=== PATIENT | female | born 1975 | race Caucasian/White ===

== ENCOUNTER 2024-04-10 13:56 | Emergency (ER) | payer BC, SELFPAY ==
[2024-04-10 14:12] VITALS: BP 110/73; PULSE 61; RESP 18; TEMP 36.6; O2SAT 97; BMI 30.5
--- NOTE | 2024-04-10 14:34 | CRLHL7_ITS ---
For Patients: As a result of the Century Cures Act, medical imaging exams and procedure reports are released immediately into your electronic medical record. You may view this report before your referring provider. If you have questions, please contact your health care provider. INDICATION: LLQ PAIN, PYURIA, HX KIDNEY STONES. TECHNIQUE: CT abdomen and pelvis acquired with 90 cc Isovue 370 IV contrast. COMPARISON: None. FINDINGS: Lower chest: Unremarkable. Liver: Unremarkable. Normal in size and attenuation. No suspicious masses. Gallbladder and bile ducts: Unremarkable. No stones or inflammation. No biliary dilatation. Pancreas: Unremarkable. No mass or inflammation. Spleen: Unremarkable. Normal in size. No masses. Adrenal glands: Unremarkable. No nodules. Kidneys: Unremarkable. No suspicious masses, stones, or hydronephrosis. GI tract: Slightly above average colonic stool volume. No bowel obstruction. Appendix within normal limits. Vasculature: Abdominal aorta is normal in caliber. Mesenteric arteries are patent. Lymph nodes: No lymphadenopathy. Peritoneum/Abdominal Wall: Small fat containing umbilical hernia. Rectus diastasis. No sign of mass or infiltration. No free air or significant free fluid. Pelvis: Uterus is unremarkable. Bilateral adnexal cysts likely physiologic. Mild bladder wall thickening anteriorly. Bones: Unremarkable for age. IMPRESSION: Mild anterior bladder wall thickening. May be related to cystitis. Correlate with UA. No renal or ureteral stones. Otherwise, no acute intra-abdominal process identified. Please note that all CT scans at this facility use dose modulation, iterative reconstruction, and/or weight-based dosing when appropriate to reduce radiation dose to as low as reasonably achievable. Dictated by Gamaliel Mcqueen MD @ 04/10/2024 4:25:05 PM (Electronically Signed)
--- NOTE | 2024-04-10 14:36 | ED_ITS ---
HPI - General Adult General Date Seen: 04/10/24 Chief complaint: Abdominal Pain Stated complaint: Lower L abdominal pain Time Seen by Provider: 04/10/24 14:27 Source: patient, RN notes reviewed and other Mode of arrival: ambulatory Limitations: no limitations History of Present Illness HPI narrative: Patient is a 49-year-old, generally healthy woman who went to urgent care today with left lower quadrant pain. She says she has had pain for about 3 weeks, she describes it is achy and it has been [id number] in intensity. She does have a history of kidney stones and it does not feel like which she remembers from previous kidney stone. It was worse this morning, she has her daughter's graduation democrat, and a trip to [place] coming up and she decided she just needed to figure what was going on. She did have a little vaginal bleeding this past week which she says was unexpected as she had her last period 2 weeks ago. She does not have specific concerns about , her has had a vasectomy. She has not had urinary symptoms, she has not had nausea, vomiting, diarrhea or bloody stools. Denies constipation. She has not had fevers or chills. She has been taking ibuprofen pretty regularly however. Previous history of , no other abdominal surgeries. Has never had a colonoscopy. Related Data Home Medications ?Medication ?Instructions ?Recorded ?Confirmed escitalopram oxalate 10 mg tablet 10 mg PO QDAY 04/10/24 04/10/24 estradiol 0.0375 mg/24 hr 1 patch transdermal 2XW 04/10/24 04/10/24 semiweekly transdermal patch (Lyllana) Allergies Allergy/AdvReac Type Severity Reaction Status Date / Time No Known Drug Allergies Allergy Verified 04/10/24 15:59 Review of Systems Status of ROS: Reports: 10 or more systems reviewed and unremarkable except as noted in History and below [facility] Medical History Abdominal pain ?R10.9 - Unspecified abdominal pain (ICD-10) Social History Smoking Status: Never smoker Do you use any of these nicotine containing products: None Second hand tobacco smoke exposure: No How often do you have a drink containing alcohol: 2-4 times a month How many standard drinks containing alcohol do you have on a typical day: 1 or 2 How often do you have six or more drinks on one occasion: Never AUDIT-C Alcohol total score: 2 Non-prescribed substance use: denies use service: No Exam Narrative: Exam Narrative: Vital signs as noted above. In general, an alert, well-appearing patient. Head: Normocephalic, atraumatic. Eyes: Pupils are equal reactive. Extraocular movements are full. Conjunctivae are normal. ENT: Mucous membranes are moist. Throat is normal. Neck: Supple without lymphadenopathy. Heart: Regular rate and rhythm. No murmur or rub. Lungs: Clear bilaterally. No increased work of breathing, crackles or wheezes. Abdomen: Soft and nontender. No organomegaly. Extremities: Well perfused. No edema. No calf tenderness. Pulses intact. Neurologic: Patient is alert and oriented to person and place. Speech is fluent. Face is symmetric. Moves all extremities equally. Affect: Normal. Skin: Warm and dry. Well perfused. Const: Vital Signs, click to edit/add: Vital Signs - 24 hr 04/10/24 14:12 04/10/24 16:31 Temperature 98 F Pulse Rate [Pulse Oximeter] 61 Respiratory Rate 18 16 Blood Pressure [Ri ght Upper Arm] 110/73 107/61 Pulse Oximetry 97 98 Oxygen Delivery Me thod Room Air Room Air Documenting provider has reviewed patient's vital signs: yes Course Course ED Course: I reviewed records from Urgent Care. Her urine there showed positive nitrites, 10-25 white blood cells, 2-5 red blood cells. This is suggestive of urinary tract infection although she does not have other symptoms of UTI. With a history of kidney stones, I think it would be prudent to rule out a larger stone at the [facility], though she does not feel that she has had any pain that severe. Diverticulitis would be another consideration that can be evaluated on CT. Consider ovarian pathology, test pending. Declines the need for anything for pain right now. She did change her mind and asked for something for pain, had Toradol IV, feels improved. test was negative. CT scan of the abdomen and pelvis by my review did not show significant inflammatory changes of the bowel or significant diverticular disease, I do not see any kidney stones or hydronephrosis. Final radiology read as follows:FINDINGS: Lower chest: Unremarkable. Liver: Unremarkable. Normal in size and attenuation. No suspicious masses. Gallbladder and bile ducts: Unremarkable. No stones or inflammation. No biliary dilatation. Pancreas: Unremarkable. No mass or inflammation. Spleen: Unremarkable. Normal in size. No masses. Adrenal glands: Unremarkable. No nodules. Kidneys: Unremarkable. No suspicious masses, stones, or hydronephrosis. GI tract: Slightly above average colonic stool volume. No bowel obstruction. Appendix within normal limits. Vasculature: Abdominal aorta is normal in caliber. Mesenteric arteries are patent. Lymph nodes: No lymphadenopathy. Peritoneum/Abdominal Wall: Small fat containing umbilical hernia. Rectus diastasis. No sign of mass or infiltration. No free air or significant free fl uid. Pelvis: Uterus is unremarkable. Bilateral adnexal cysts likely physiologic. Mild bladder wall thickening anteriorly. Bones: Unremarkable for age. IMPRESSION: Mild anterior bladder wall thickening. May be related to cystitis. Correlate with UA. No renal or ureteral stones. Otherwise, no acute intra-abdominal process identified. Reviewed all this with her. I think it is reasonable to treat her for the bladder infection and see how she responds. 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 I do not suspect ovarian torsion, I do not think she needs that imaging today. If at any time she feels acutely worse, has severe uncontrolled pain, fever, vomiting or other worsening changes, return to the emergency department. Prescribed Macrobid from [facility]. Vital Signs Vital signs: Initial Vital Signs Temperature 98 F 04/10/24 14:12 Temperature Source Temporal Artery Scan 04/10/24 14:12 Pulse Rate 61 04/10/24 14:12 Pulse Rhythm Regular 04/10/24 14:12 Respiratory Rate 18 04/10/24 14:12 Blood Pressure 110/73 04/10/24 14:12 Blood Pressure Mean 85 04/10/24 14:12 Blood Pressure Position Sitting 04/10/24 14:12 Pulse Oximetry 97 04/10/24 14:12 Oxygen Delivery Method Room Air 04/10/24 14:12 Vital Signs Temperature 98 F 04/10/24 14:12 Pulse Rate 61 04/10/24 14:12 Respiratory Rate 18 04/10/24 14:12 Blood Pressure 110/73 04/10/24 14:12 Pulse Oximetry 97 04/10/24 14:12 Oxygen Delivery Method Room Air 04/10/24 14:12 Temperature 98 F 04/10/24 14:12 Pulse Rate 61 04/10/24 14:12 Respiratory Rate 16 04/10/24 16:31 Blood Pressure 107/61 04/10/24 16:31 Pulse Oximetry 98 04/10/24 16:31 Oxygen Delivery Method Room Air 04/10/24 16:31 Medications Administered Medications: Discontinued Medications Generic Name Dose Route Start Last Admin Trade Name Danielle PRN Reason Stop Dose Admin Sodium Chloride 1,000 mls @ 1,000 mls/hr 04/10/24 14:45 04/10/24 15:26 0.9 % Sodium Chloride 1000 Ml IV 04/10/24 15:44 1,000 mls/hr .Q1H FELIPE Administration Ketorolac Tromethamine 15 mg 04/10/24 15:14 04/10/24 15:26 Ketorolac 15 Mg/Ml Inj IVP 04/10/24 15:15 15 mg ONCE ONE Administration Medical Decision Making Lab Data Labs: Lab Results 04/10/24 Range/Units 15:10 HCG, Qual Negative (Negative) Discharge Plan Discharge Clinical Impression: UTI (urinary tract infection) Abdominal pain Qualifiers: Abdominal location: left lower quadrant Qualified Code(s): R10.32 - Left lower quadrant pain Patient Disposition: Home, Self-Care Condition: Stable Instructions: Urinary Tract Infection in Women (DC) Additional Instructions: Antibiotic as prescribed. Continue ibuprofen and/or Tylenol as needed. Your CT scan today does not show any acute findings such as kidney stones or diverticulitis. You likely have some cysts on both ovaries, but these are not significantly large and are likely not contributing to your symptoms. However, if not improving with antibiotics, would recommend primary care follow-up and consideration of a pelvic ultrasound for further evaluation. Prescriptions: No Action escitalopram oxalate 10 mg tablet 10 mg PO QDAY estradiol [Lyllana] 0.0375 mg/24 hr patch semiweekly 1 patch transdermal 2XW Rx Instructions: apply 1 patch for 3 days alternating with 1 patch for 4 days each week for 3 wks per 4-wk cycle Follow Up/Referrals: Kitty Guerra MD [Staff Physician] - Stand Alone Forms: [employer] Info Instructions
--- OUTSIDE RECORDS SUMMARY | 2024-04-10 14:40 | XMS_ITS | Clinical Summary ---
Author Organization [facility] Address [place], [place] [address] Care Team Providers Care Switch Repairer Name Role Phone Laquita Angeles Primary Care Provider [phone] Allergies No known active allergies Medications Medication Sig Dispensed Refills Start Date End Date Status citalopram hydrobromide (CELEXA) 10 mg tabletIndications:de pression Take 10 mg by mouth once daily. Indications: DEPRESSION Active oxyCODONE-acetaminop hen, 5-325 mg, (PERCOCET 5-325) 5-325 mg per tablet Take 1 tablet by mouth every 4 hours if needed for Pain for 20 doses. 20 tablet 0 11/26/2010 Active Active Problems Problem Noted Date Diagnosed Date Ureteral stone 11/26/2010 Immunizations Name Administration Dates Next Due Influenza, IIV3 (Age >=3 years) 11/27/2010 Social History Tobacco Use Types Packs/Day Years Used Date Smoking Tobacco: Never Alcohol Use Standard Drinks/Week Comments Not Asked 0 (1 standard drink = 0.6 oz pur e alcohol) Sex and Gender Information Value Date Recorded Sex Assigned at Not on file Gender Identity Not on file Sexual Orientation Not on file Obstetrics History Last Filed Vital Signs Vital Sign Reading Time Taken Comments Blood Pressure 105/77 01/11/2022 5:00 PM CDT Pulse 66 01/11/2022 5:00 PM CDT Temperature 36.1 ??C (97 ??F) 01/11/2022 4:00 PM CDT Respiratory Rate 16 01/11/2022 4:15 PM CDT Oxygen Saturation 97% 01/11/2022 5:00 PM CDT Inhaled Oxygen Concentration - - Weight 71.1 kg (156 lb 12.8 oz) 022 12:46 PM CDT Height 165.1 cm (5' 5) 01/11/2022 12:4 6 PM CDT Body Mass Index 26.09 01/11/2022 12:46 PM CDT Plan of Treatment Health Maintenance Due Date Last Done Comments Tdap 1988 Depression screening for age 12+ 1989 HIV for age 15-65 1992 BMI (ht and wt on same day) for age 18+ 1995 Hepatitis C screening for ag e 18-79 1995 Tetanus booster 1997 Pap test for age 21-65 1998 Colonoscopy through age 75 2022 Lipids for age 45-75 2022 Mammogram for age 45-75 2022 COVID-19 vaccine series (2022-24 season) 2023 03/21/2021, 02/25/2021 Influenza for age 9-49 06/28/2024 11/27/2010 Pneumococcal series for age 6-64 Aged Out No longer eligible b ased on patient's age to complete this topic Medical Devices Implanted Type Area Workforce Development Program Director Device Identifier Shelf Expiration Date Model / Serial / Lot Stent Prcflx [id number] Hydpls - [id number] Implanted:Qty: 1 on 11/26/[address] [facility] Left: Ureter [facility] [place] [facility] 08/27/2013 [id number] / / [id number] Care Teams Switch Repairer Relationship Specialty Start Date End Date Laquita Angeles PCP - General Family Practice 11/26/10
--- OUTSIDE RECORDS SUMMARY | 2024-04-10 14:40 | XMS_ITS | Continuity of Care Document ---
Author Organization [place] - [facility], [id number] Address [address] [facility] [address] [place] [address] Assessment Encounter Date Assessment Date Assessment LastModified by Organization Details LastModified Time 02/06/2024 02/06/2024 - Encouraged breast self-awareness and recommend yearly mammogram. - Calcium and vitamin D intake discussed. - Lipid panel, A1C and TSH today - Lexapro refilled x 1 year - Discussed appropriate breast cancer screening and mammogram intervals. - Counseled on perimenopause signs/symptoms. - Counseled about the use of HRT; risks, benefits and alternatives of hormone replacement therapy were discussed today. - Colonoscopy scheduled for next month - Yearly skin scan with derm - Normal mammogram in December - Will inform pt of lab results - RTC in 1 month for medication f/u [email or web address] Not available 02/06/2024 13:50:20 Plan of Treatment Reminders Order Date Submit Date Provider Last Modified By Organization Details Last Modified Time Details Appointments None recorded. Lab lipid panel, serum 2023 [facility], [address] [place] [address], [id number], [place], [address], 4 08:19:00 TSH, serum or plasma 2023 024 [facility], [address], [address], [place], [address], 4 08:19:00 hemoglobin A1c, QN, blood 2023 024 [facility], [address], [address], [place], [address], 08:18:57 Referral None recorded. Procedures None recorded. Surgeries None recorded. Imaging None recorded. Medication Orders progesteron e micronized 100 mg capsule 2023 [facility], [address] [place], [address], 13:48:12 estradiol 0.05 mg/24 hr semiweekly transdermal patch 2023 [facility], [address] [place], [address], 4 13:48:12 escitalopra m 10 mg tablet 2023 [facility] [address], [address] [place], [address], 13:51:12 Patient TargetsNo targets recorded. Patient InstructionsNo instructions recorded. Reason for Referral None Reported. Results Created Date Observation Date Name Description Value Unit Range Abnormal Flag LastModifiedBy Organization Detail LastModifiedTime 01/20/2001/15/2024 MAMMO , scree miah, tomos ynthe sis, bilat eral, w/ CAD No observ ation record ed. [email or web address] [facility] [address], [place], [address], 01/20/2024 15:02:10 Result Notes None recorded. Problems Name Status Onset Date Resolution Date Notes Provider Name and Address Organization Details Recorded Time Contraception care management Active 07/05/20 ABRAHAM Ennis [facility] 07/05/2022 14:32:57 Problem Notes None recorded. Procedures Surgical History Date Name Laterality Status Provider Name and Address Organization Details Recorded Time 01/15/20 Date of Last Mammogram completed ABRAHAM Barry [facility] 01/20/2024 15:01:55 01/24/20 22 Date of Last Pap Smear completed HECTOR CEDEÑO, CNM [address] [facility],[address], [place], [address], [facility] 02/06/2024 10:42:06 colposcopy of cervix completed Not Available [facility] 06/06/2020 01:03:49 tooth extraction completed Not Available [facility] 06/06/2020 01:03:49 section completed Not Available [facility] 06/06/2020 01:03:49 endometrial biopsy completed Not Available [facility] 06/06/2020 01:03:49 Imaging Results None recorded. Procedure Notes None recorded. Medical Equipment None Reported. Allergies No known drug allergies Medications Name Sig Start Date Stop Date Status Note LastModified by Organization Details LastModified Time Aviane 0.1 mg-20 mcg tablet TAKE 1 TABLET BY MOUTH ONCE DAILY 02/05 completed Not Available Not Available Not Available paroxetine 10 mg tablet TAKE 1 2 (ONE HALF) TABLET BY MOUTH ONCE DAILY 11/21 completed Not Available Not Available Not Available tizanidine 4 mg tablet TAKE 1/2 TO 1 (ONE-HALF TO ONE) TABLET BY MOUTH AT BEDTIME FOR NECK PAIN AND HEADACHES active Not Available Not Available No t Available tretinoin 0.025 % topical cream APPLY CREAM TOPICALLY TO FACIAL AREA THREE TIMES A WEEK APPLY SMALL AMOUNT active Not Available Not Available No t Available sertraline 50 mg tablet Take 1 tablet every day by oral route. active Not Available Not Available No t Available diazepam 5 mg tablet TAKE 1 TABLET BY MOUTH 45 MINUTES PRIOR TO MRI, REPEAT DOSE ONCE IF NEEDED 11/16 completed Not Available Not Available Not Available progesteron e micronized 100 mg capsule TAKE 1 CAPSULE BY MOUTH ONCE DAILY AT BEDTIME active Not Available Not Available No t Available escitalopra m 10 mg tablet TAKE 1 TABLET BY MOUTH ONCE DAILY active Not Available Not Available No t Available magnesium active Not Available Not Susanna ilable Not Available Vitamin D3 2,000iu active Not Available Not A vailable Not Available Probiotic active Not Available Not Susanna ilable Not Available Daily Multiple For Women active Not Available Not Available No t Available Lyllana 0.05 mg/24 hr transdermal patch APPLY 1 PATCH TOPICALLY TWICE A WEEK active Not Available Not Available No t Available Vuity 1.25 % eye drops INSTILL 1 DROP INTO EACH EYE ONCE DAILY 02/05 completed Not Available Not Available Not Available Vitals Date Recorded Body weight Body mass index (BMI) Body height Systolic blood pressure Diastolic blood pressure Provider Name and Address Organization Details Last Updated DateTime 02/06/2024 04851.81 g 30.3 kg/m2 165.1 cm 100 mm[Hg] 60 mm[Hg] Leatha Crandall [place] - [facility] 4 10:13:13 Social History Question Answer Notes LastModified by Page[employer] Details LastModified Time Tobacco Smoking Status Never Smoker Tobacco *Status: Never *Note: 10/01/2017 - [facility] 06/06/2020 13:23:55 What Is Your Level Of Alcohol Consumption? Occasional Alcohol *Status: Current Some Day *Qty: 1dr/week *Note: Information not available 06/06/2020 What Is Your Level Of Caffeine Consumption? Moderate Caffeine *Status: Current Every Day *Qty: 1c/day *Note: [email or web address] Information not available 11/16/2022 History Of Domestic Violence No Denies All Domestic Violence Information not available 06/06/2020 Marital Status [email or web address] Information not available 11/16/2022 Sex: Female Functional Status Question Answer Note LastModified by Page[employer] Details LastModified Time What is your exercise level? Heavy Heavy Amount of Exercise (4 or more times weekly) Information not available 06/06/2020 Mental Status None recorded. Family History Relationship Description Onset Age of this Age Resolved Age Notes Paternal Grandfather Family history of diabetes mellitus Diabetes Paternal Grandfather Family history of Cardiovascular disease Heart disease Paternal Grandfather Family history of stroke Stroke Mother Disorder of thyroid gland Thyroid Disease: 2 mat and 1 pat aunt Maternal Grandmother Family history of breast cancer 60 Cancer Breast: Mat Aunt x2 bouts Paternal Grandmother Family history of Cardiovascular disease Heart disease Notes:06/06/2020: *Relative: Aunt *Problem: Cancer Breast: Mat Aunt x2 bouts 06/06/2020: *Relative: Aunt *Problem: Thyroid Disease: 2 mat and 1 pat aunt Medical History Condition Response Psych- Depression Y Neurology- Headaches/Migraines N Endocrinology- Thyroid Problems Gynecological History Statement/Question Response Age at Menarche: 15 HPV Test Negative Date of Last Mammogram 01/15/2024 Date of LMP 01/26/2024 Current Control Method Combined Or al Contraceptive Date of Last Pap Smear 11/20/2021 Obstetrics History GPAL:G 2 P 2 0 0 2 Type Value Multiple Births 0 Full Term 2 Induced 0 Spontaneous 0 Premature 0 Living 2 Ectopics 0 Total 2 Immunizations Vaccine Type Date Status Provider Name and Address Organization Details Recorded Time Novel [id number], all formulations 10/27/2009 completed Ritika Beckman (TERMED) null, [place] [facility] 11/16/2022 09:35:22 COVID-19, mRNA, LNP-S, PF, 30 mcg/0.3 mL dose 02/25/2021 completed Ritika Beckman (TERMED) null, [place] [facility] 11/16/2022 09:35:22 COVID-19, mRNA, LNP-S, PF, 30 mcg/0.3 mL dose 03/21/2021 completed Ritika Beckman (TERMED) null, [place] [facility] 11/16/2022 09:35:22 Td (adult), 5 Lf tetanus toxoid, preservative free, adsorbed 01/05/2022 completed Ritiak Beckman (TERMED) null, [place] [facility] 11/16/2022 09:35:22 Past Encounters Encounter ID Performer Location Encounter Start Date Encounter Closed Date Diagnosis/Indication Diagnosis SNOMED-CT Code [id number] HECTOR CEDEÑO, [facility] [id number] [address], [address] [place] [address] 02/06/2024 10:05:19 02/06/2024 13:52:15 Hyperlipidemia screening 907373212 Diabetes m ellitus screening 778811863 Family his tory of Thyroid disorder 554406981 Gynecologi c examination 07976765 Menopausal symptom 21777 002 Anxiety 26282142 Health Concerns Section Related Observation LastModified by Organization Detai ls LastModified Time None Recorded Concern Status LastModified by Organization Details LastModified Time None Recorded Payers Encounter Date Sequence Insurance Name Policy Number Policy Cardona Covered Member ID Cardona Member ID Guarantor Name 02/06/2024 1 [place] [id number] Chaz Martinez [id number] Lanie Martinez Notes Date Note Type Note Provider Name and Address Organization Details Recorded Time 02/06/2024 text/html HPI Notes: Brendon Nascimento () Reported by patient. Patient Relationship To Practice: established patient Current Medical History: no active medical problems Relevant Family History: family history of breast cancer; no family history of ovarian cancer; no family history of uterine cancer; no family history of colon cancer; no family history of blood clots/DVT Menstrual History: Frequency of Menses: monthly; Number of Days of Heavy Flow: 1; spacing out c/w perimenopause Contraceptive Method: satisfied: vasectomy Sexually Active: Yes: spouse STI Screen: declines Health/Prevention: Exercise: yes; Multivitamins: yes; Vitamin D: yes; Adequate Calcium Intake: yes; Safe at home: yes; Urinary Incontinence: no Mammogram: up-to-date Pap Smear +/- HPV Cotesting: up-to-date Thyroid/Lipid Screening: due Colonoscopy: due; Scheduled for next month Patient has: Rn Float: yes Notes: Doing ok, experiencing hot flashes, night sweats and difficulty sleeping which has increased her symptoms of anxiety. Periods are monthly but vary in length. We discussed risks and benefits of supplemental hormonal therapy, pt is interested. HECTOR CEDEÑO, CNM [address] [facility],[address], [place], [address], [place] - [place] [facility] 02/06/2024 13:51:28 OBGyn Episode No OBEpisode recorded.
--- OUTSIDE RECORDS SUMMARY | 2024-04-10 14:40 | XMS_ITS | Data Portability ---
Author Organization [facility], [id number] Address [address] [address] Assessment Encounter Date Assessment Date Assessment LastModified by Organization Details LastModified Time 10/27/2020 10/27/2020 Screening labs today, has family hx of hypothyroidism, thyroid cascade included F/U breast biopsy on 11/02/2020 Taking adequate amounts of calcium and vitamin D daily Exercises most days of the week Options for vasomotor symptoms of perimenopause reviewed including low dose OCPs or an SSRI or both. Warnings/precauti ons reviewed. Patient would like to start with OCP's, if no difference noted then will try Paxil. RX sent for both RTC in one year/roland kruse Not available 10/30/2020 21:24:43 11/21/2021 11/21/2021 LIpids. has family hx of hypothyroidism, thyroid cascade included Taking adequate amounts of calcium and vitamin D daily Exercises most days of the week [email or web address] Not available 11/21/2021 15:14:14 07/27/2022 07/27/2022 This service was provided using telemedicine including synchronous audio and/or video approved technology. The patient verbally Consents to telemedicine services, virtual check-ins and evisits. Telemedicine consultation via Synchronous Audio and Video Call. I spent a total of 15 minutes providing care for this patient including: preparing to see the patient, obtaining a medical history, completing a medically appropriate physical exam, completing documentation of visit information and plans in the EMR, counseling the patient and/or caregiver regarding her diagnosis, treatment options and follow up plans, as well as any necessary communication of subsequent test results to the patient Assessment and Plan for this visit include the following: Zoloft refilled, mood symptoms reviewed. Aware of emergency resources, plans to connect with a therapist, has names and numbers OCP's refilled, warnings/precauti ons reviewed including ACHES Will start tracking food and increasing exercise RTC in 3 months for mood/med check in or sooner if needed [email or web address] Not available 08/04/2022 11:58:17 11/16/2022 11/16/2022 - Encouraged breast self-awareness - Recommend mammogram annually - Encouraged regular exercise. - Discussed calcium, vitamin D, and weight bearing exercise for bone health. - Recommend colonoscopy starting at age 45. - Encouraged patient to establish care with a PCP to manage non-[facility] [employer] concerns if she does not already have one. - Reviewed current cervical cancer screening guidelines. - Discussed common perimenopausal changes including vaginal dryness, hot flashes, night sweats, mood changes, and weight changes. - strategies for constipation reviewed - Screening labs today, will inform pt of results - Pelvic ultrasound ordered for pain and cramping without menses - Discontinue sertraline, start Lexapro. Instructions, warnings/precauti ons reviewed - Plans to discontinue OCP's to see what periods are like without, will monitor weight - RTC for pelvic US or sooner as needed [email or web address] Not available 11/19/2022 10:40:48 11/26/2022 11/26/2022 I spent a total of 15 minutes providing care for this patient including: preparing to see the patient, obtaining a medical history, completing a medically appropriate physical exam, completing documentation of visit information and plans in the EMR, counseling the patient and/or caregiver regarding her diagnosis, treatment options and follow up plans, as well as any necessary communication of subsequent test results to the patient, reviewing test results, reviewing imaging Normal rn med surg ultrasound with incidental finding of small intramural fibroid MNGI card given, plan to follow up MAMADOU for cramping and bloating Will send records of visit with [facility] RTC prn uriah Not available 11/26/2022 10:54:00 02/06/2024 02/06/2024 - Encouraged breast self-awareness and [...] RTC in 1 month for medication f/u uriah Not available 02/06/2024 13:50:20 Plan of Treatment Reminders Order Date Submit Date Provider Last Modified By Organization Details Last Modified Time Details Appointments None record ed. Lab lipid panel, serum [address] [facility], [address], [address], [place], [address], 4 08:19:00 TSH, serum or plasma [address] [facility], [address], [address], [place], [address], 4 08:19:00 hemogl obin A1c, QN, blood [address] [facility], [address], [address], [place], [address], 4 08:18:57 lipid panel, serum [address] [facility], [address], [address], [place], [address], 3 19:00:55 TSH, serum or plasma [address] [facility], [address], [address], [place], [address], 3 19:00:54 glucos e, blood [address] [facility], [address], [address], [place], [address], 3 19:00:56 cytolo gy report , thin prep, smear or scrapi ng, cervic al or vagina l 2021 022 [place], [address], [place], [address], 2 05:08:05 hemogl obin (Hb), finger stick, blood 2019 020 uriah [id number] [facility] , [address], [address], [place], [address], 0 10:21:56 lipid panel, blood 2019 020 [facility], [address], [place], [address], 0 17:27:56 unlist ed lab - glucos e, fastin g 2019 020 [facility], [address], [place], [address], 0 17:47:03 thyroi d cascad e, serum 2019 020 [facility], [address], [place], [address], 0 17:47:03 Referral None record ed. Procedures None record ed. Surgeries None record ed. Imaging US, pelvis , transa bdomin al + transv aginal 2022 023 [email or web address], [address], [place], [address], 3 09:27:58 Medication Orders proges terone micron ized 100 mg capsul e 2023 024 [facility], [address] [facility], [place], [address], 4 13:48:12 estrad iol 0.05 mg/24 hr semiwe ekly transd ermal patch 2023 024 [facility] [address], [address] [place] [address], [address], 4 13:48:12 escita lopram 10 mg tablet 2023 024 [facility] [address], [address] [place] [address], [address], 4 13:51:12 escita lopram 10 mg tablet 2022 023 [facility] [address], [address] [place] [address], [address], 3 18:02:53 Aviane 0.1 mg-20 mcg tablet [address] [facility], [address] [place] [address], [address], 4 10:14:22 Zoloft 50 mg tablet 2021 022 [facility] [address], [address] [place] [address], [address], 2 17:50:27 Paxil 10 mg tablet 2019 020 mehdi gibbs [facility] [address], [address] [place] [address], [address], 2 10:44:20 Lutera (28) 0.1 mg-20 mcg tablet [address], [address] [place] [address], [address], 4 10:14:22 Patient TargetsNo targets recorded. Patient InstructionsNo instructions recorded. Reason for Referral None Reported. Results Created Date Observation Date Name Description Value Unit Range Abnormal Flag LastModifiedBy Organization Detail LastModifiedTime 10/27/2020 hemog lobin (Hb), finge rstic k, blood fingerstick hemoglobin 12.8 g/dL 12.0-1 5.0 Not Available [id number] [email or web address] [address], [place], [address], 10/27/2020 09:42:55 10/27/20 20 10/27/2020 lipid panel , blood lipid profile cascade Duplic ate Not Available [facility] [address] [place], [address], 10/27/2020 17:27:56 10/27/20 20 10/27/2020 lipid panel , blood specimen type Not Available [facility] [address] [place], [address], 10/27/2020 17:47:02 10/27/20 20 10/27/2020 lipid panel , blood cholesterol 227 mg/dL <200 high Not Available [facility] [address] [place], [address], 10/27/2020 17:47:02 10/27/20 20 10/27/2020 lipid panel , blood triglyceride s profile 77 mg/dL <[address] [facility] [address] [place], [address], 10/27/2020 17:47:02 10/27/20 20 10/27/2020 lipid panel , blood LDL chol, calc 139 mg/dL <[address] [facility] [address] [place], [address], 10/27/2020 17:47:02 10/27/20 20 10/27/2020 lipid panel , blood HDL cholesterol 73 mg/dL >[address] [facility] [address] [place], [address], 10/27/2020 17:47:02 10/27/20 20 10/27/2020 lipid panel , blood chol/HDL ratio 3.1 0.0-4. [address] [facility] [address] [place], [address], 10/27/2020 17:47:02 10/27/20 20 10/27/2020 gluco se, fasti ng glucose, fasting 88 mg/dL 50-[address] [facility] [address], [place], [address], 10/27/2020 17:47:03 10/27/20 20 10/27/2020 thyro id casca de, serum TSH 1.100 uIU/m L 0.358- 3.[address] [facility] [address], [place], [address], 10/27/2020 17:47:03 11/21/19 22 11/22/2021 LIPID PANEL cholesterol, total 229 mg/dL 100-19 9 above high normal Not Available [facility] ([facility]) [address] [place], [address], 11/22/2021 09:11:26 11/21/19 22 11/22/2021 LIPID PANEL triglyceride s 162 mg/dL 0-149 above high normal Not Available [facility] ([facility]) [address] [place], [address], 11/22/2021 09:11:26 11/21/19 22 11/22/2021 LIPID PANEL HDL cholesterol 66 mg/dL >39 Not Available [facility] ([facility]) [address] [place], [address], 11/22/2021 09:11:26 11/21/19 22 11/22/2021 LIPID PANEL VLDL cholesterol josesito 28 mg/dL 5-40 Not Available [facility] ([facility]) [address] [facility], [address], 11/22/2021 09:11:26 11/21/19 22 11/22/2021 LIPID PANEL LDL chol calc ([facility]) 135 mg/dL 0-99 above high normal Not Available [facility] ([facility]) [address] [facility], [place], [address], 11/22/2021 09:11:26 11/21/19 22 11/22/2021 LIPID PANEL 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 Not Available [facility] [address] [facility], [place], [address], 11/22/2021 09:11:26 11/21/19 22 11/22/2021 THYRO ID CASCA DE PROFI LE TSH 0.811 uIU/m L 0.450- 4.500 Not Available [facility] ([facility]) [address] [facility] [place], [address], 11/22/2021 09:11:27 11/21/19 22 11/23/2021 IGP, APTIM A HPV, RFX 16/18 ,45 interpretati on NILM Not Available [facility] ([facility]) [address] [facility], [address], 11/24/2021 05:08:05 11/21/19 22 11/23/2021 IGP, APTIM A HPV, RFX 16/18 ,45 category: NIL Not Available [facility]) [address] [facility], [address], 11/24/2021 05:08:05 11/21/19 22 11/23/2021 IGP, APTIM A HPV, RFX 16/18 ,45 adequacy: ENDO Not Available [facility]) [address] [facility], [address], 11/24/2021 05:08:05 11/21/19 22 11/23/2021 IGP, APTIM A HPV, RFX 16/18 ,45 clinician provided ICD10: Jose Manuel corbin Not Available [facility] ([facility]) [address] [place], [address], 11/24/2021 05:08:05 11/21/19 22 11/23/2021 IGP, APTIM A HPV, RFX 16/18 ,45 performed by: Jose Manuel corbin Not Available [facility] ([facility]) [address] [place], [address], 11/24/2021 05:08:05 11/21/19 22 11/23/2021 IGP, APTIM A HPV, RFX 16/18 ,45 note: Jose Manuel corbin Not Available [facility] ([facility]) [address] [place], [address], 11/24/2021 05:08:05 11/21/19 22 11/23/2021 IGP, APTIM A HPV, RFX 16/18 ,45 test methodology: Jose Manuel corbin Not Available [facility] ([facility]) [address] [place], [address], 11/24/2021 05:08:05 11/21/19 22 11/24/2021 IGP, APTIM A HPV, RFX 16/18 ,45 HPV aptima Negati ve negati ve Not Available [facility] ([facility]) [address] [place], [address], 11/24/2021 05:08:05 11/16/19 23 11/16/2022 TSH WITH REFLE X TO FREE T4 TSH 0.88 uIU/m L 0.30-4 .20 Not Available [address], [place], [address], 11/16/2022 19:00:54 11/16/19 23 11/16/2022 LIPID PANEL cholesterol 216 mg/dL <200 high Not Available [address], [place], [address], 11/16/2022 19:00:55 11/16/1911/16/2022 LIPID PANEL triglyceride s 133 mg/dL <150 Not Available [address], [place], [address], 11/16/2022 19:00:55 11/16/1911/16/2022 LIPID PANEL direct measure HDL 66 mg/dL >=50 Not Available [address], [place], [address], 11/16/2022 19:00:55 11/16/1911/16/2022 LIPID PANEL LDL cholesterol calculated 123 mg/dL <=100 high Not Available [address], [place], [address], 11/16/2022 19:00:55 11/16/19 23 11/16/2022 LIPID PANEL non HDL cholesterol 150 mg/dL <130 high Not Available [address], [place], [address], 11/16/2022 19:00:55 11/16/1911/16/2022 GLUCO SE SERUM OR PLASM A patient fasting > 8hrs? Yes Not Available [address], [place], [address], 11/16/2022 19:00:56 11/16/1911/16/2022 GLUCO SE SERUM OR PLASM A glucose 89 mg/dL 70-99 Not Available [address], [place], [address], 11/16/2022 19:00:56 02/06/20 24 02/06/2024 HEMOG LOBIN A1C hemoglobin A1C 5.5 % <5.7 Not Available [address], [place], [address], 02/07/2024 08:18:57 02/06/20 24 02/06/2024 TSH WITH REFLE X TO FREE T4 TSH 1.03 uIU/m L 0.30-4 .20 Not Available [address], [place], [address], 02/07/2024 08:19:00 02/06/20 24 02/06/2024 LIPID PANEL cholesterol 218 mg/dL <200 high Not Available [address], [place], [address], 02/07/2024 08:19:00 02/06/20 24 02/06/2024 LIPID PANEL triglyceride s 90 mg/dL <150 Not Available [address], [place], [address], 02/07/2024 08:19:00 02/06/2002/06/2024 LIPID PANEL direct measure HDL 62 mg/dL >=50 Not Available [address], [place], [address], 02/07/2024 08:19:00 02/06/2002/06/2024 LIPID PANEL LDL cholesterol calculated 138 mg/dL <=100 high Not Available [address], [place], [address], 02/07/2024 08:19:00 02/06/2002/06/2024 LIPID PANEL non HDL cholesterol 156 mg/dL <130 high Not Available [address], [place], [address], 02/07/2024 08:19:00 02/06/20 24 02/06/2024 LIPID PANEL patient fasting > 8hrs? Yes Not Available [address], [place], [address], 02/07/2024 08:19:00 09/30/20 20 09/29/2020 MAMMO , scree miah, bilat eral No observ ation record ed. [email or web address] [facility] [address], [place], [address], 09/30/2020 11:40:48 10/12/20 20 10/11/2020 MAMMO , diagn ostic , unila teral No observ ation record ed. [email or web address] [facility] [address], [place], [address], 10/12/2020 13:29:42 10/12/20 20 10/11/2020 US, breas t, unila teral No observ ation record ed. [email or web address] [facility] [address], [place], [address], 11/04/2020 09:16:44 11/03/19 21 11/02/2020 biops y, breas t, w/ ultra sound garland nce (PROC ) No observ ation record ed. [email or web address] [facility] [address], [place], [address], 11/07/2020 18:20:55 11/03/19 21 11/02/2020 biops y, breas t, w/ ultra sound garland nce (PROC ) No observ ation record ed. [email or web address] [facility] [address], [place], [address], 11/07/2020 18:20:11 11/08/19 21 11/03/2020 needl e core biops y, breas t, ultra sound garland nce (PROC ) No observ ation record ed. [email or web address] [facility] [address], [place], [address], 11/10/2020 15:02:49 11/17/19 22 11/16/2021 MAMMO , scree miah, bilat eral No observ ation record ed. [email or web address] [facility] [address], [place], [address], 11/18/2021 13:43:22 11/26/19 23 11/26/2022 US, pelvi s, trans abdom inal + trans vagin al No observ ation record ed. [email or web address] [address] [address], [place], [address], 11/29/2022 09:41:15 12/13/19 23 12/13/2022 MAMMO , scree miah, tomos ynthe sis, bilat eral, w/ CAD No observ ation record ed. [email or web address] [facility] [address], [place], [address], 12/14/2022 10:32:05 01/20/20 24 01/15/2024 MAMMO , scree miah, tomos ynthe sis, bilat eral, w/ CAD No observ ation record ed. [email or web address] [facility] [address], [place], [address], 01/20/2024 15:02:10 Result Notes Documentation Provider Name and Address Organization Details Recorded Time Mammo, Screening, Tomosynthesis, Bilateral, W/ Cad : Mammogram Screening Mammogram Type: 3D Bilateral Radiological Classification: Bi-Rads 1 - Negative ACR Category: b-Scattered areas of fibroglandular density Followup planned: Screening mammogram one year [facility] Barry [facility] 01/20/2024 15:02:10 Problems Name Status Onset Date Resolution Date Notes Provider Name and Address Organization Details Recorded Time Contraception care management Active 07/05/20 22 ABRAHAM Ennis [facility] 07/05/2022 14:32:57 Problem Notes None recorded. Procedures Surgical History Date Name Laterality Status Provider Name and Address Organization Details Recorded Time 01/15/20 24 Date of Last Mammogram completed ABRAHAM Barry [facility] 01/20/2024 15:01:55 11/20/19 22 Date of Last Pap Smear completed HECTOR CEDEÑO, CNM [address] [facility],[address], [place], [address], [place] [facility] 02/06/2024 10:42:06 colposcopy of cervix completed Not Available [facility] 06/06/2020 01:03:49 tooth extraction completed Not Available [facility] 06/06/2020 01:03:49 section completed Not Available [facility] 06/06/2020 01:03:49 endometrial biopsy completed Not Available [facility] 06/06/2020 01:03:49 Imaging Results Imaging Date Name Status LastModified by Organization Details LastModified Time 09/29/2020 MAMMO, screening, bilateral completed [email or web address] [facility] [address], [place], [address], 09/30/2020 11:40:48 10/11/2020 MAMMO, diagnostic, unilateral completed [email or web address] [facility] [address], [place], [address], 10/12/2020 13:29:42 10/11/2020 US, breast, unilateral completed [email or web address] [facility] [address], [place], [address], 11/04/2020 09:16:44 11/02/2020 biopsy, breast, w/ ultrasound guidance (PROC) completed [email or web address] [facility] [address], [place], [address], 11/07/2020 18:20:55 11/02/2020 biopsy, breast, w/ ultrasound guidance (PROC) completed [email or web address] [facility] [address], [place], [address], 11/07/2020 18:20:11 11/03/2020 needle core biopsy, breast, ultrasound guidance (PROC) completed [email or web address] [facility] [address] [facility] [address], [place], [address], 11/10/2020 15:02:49 11/16/2021 MAMMO, screening, bilateral completed [email or web address] [facility] [address] [facility] [address], [place], [address], 11/18/2021 13:43:22 11/26/2022 US, pelvis, transabdominal + transvaginal completed [email or web address] [address], [place], [address], 11/29/2022 09:41:15 12/13/2022 MAMMO, screening, tomosynthesis, bilateral, w/ CAD completed [email or web address] [facility] [address] [facility] [address], [place], [address], 12/14/2022 10:32:05 01/15/2024 MAMMO, screening, tomosynthesis, bilateral, w/ CAD completed [email or web address] [facility] [address] [facility] [address], [place], [address], 01/20/2024 15:02:10 Procedure Notes None recorded. Medical Equipment None [...] Available Not Available Vitals Date Recorded Body height Body mass index (BMI) Body weight Systolic blood pressure Diastolic blood pressure Provider Name and Address Organization Details Last Updated DateTime 2 165.1 cm 26.4 kg/m2 14881.4 7 g 108 mm[Hg] 60 mm[Hg] Chari Grossman [facility] 2 10:43:59 Date Recorded Body height Body mass index (BMI) Body weight Systolic blood pressure Diastolic blood pressure Provider Name and Address Organization Details Last Updated DateTime 11/16/2022 165.1 cm 28.7 kg/m2 81662.61 g 106 mm[Hg] 74 mm[Hg] Ritika Beckman (TERMED) [facility] 3 09:40:20 Date Recorded Body height Body mass index (BMI) Body weight Systolic blood pressure Diastolic blood pressure Provider Name and Address Organization Details Last Updated DateTime 11/26/2022 165.1 cm 28.3 kg/m2 25807.7 g 115 mm[Hg] 70 mm[Hg] Christiano herrera [facility] 3 10:20:27 Date Recorded Body weight Body mass index (BMI) Body height Systolic blood pressure Diastolic blood pressure Provider Name and Address Organization Details Last Updated DateTime 02/06/2024 86215.81 g 30.3 kg/m2 165.1 cm 100 mm[Hg] 60 mm[Hg] Leatha Leal [facility] 4 10:13:13 Date Recorded Body mass index (BMI) Body height Body weight Systolic blood pressure Diastolic blood pressure Provider Name and Address Organization Details Last Updated DateTime 01/06/2010 26.06 kg/m2 166.4208 cm 81805.18 683 g 90 mm[Hg] 62 mm[Hg] Not Available [facility] 0 10:56:43 Date Recorded Body mass index (BMI) Body height Body weight Systolic blood pressure Diastolic blood pressure Provider Name and Address Organization Details Last Updated DateTime 03/12/2016 23.93 kg/m2 166.4208 cm 85313.48 602 g 98 mm[Hg] 60 mm[Hg] Not Available [facility] 0 10:56:43 Date Recorded Body mass index (BMI) Body weight Body height Systolic blood pressure Diastolic blood pressure Provider Name and Address Organization Details Last Updated DateTime 04/18/2011 25.24 kg/m2 95741.22 498 g 166.4208 cm 100 mm[Hg] 60 mm[Hg] Not Available [facility] 0 10:56:42 Date Recorded Body weight Body mass index (BMI) Body height Systolic blood pressure Diastolic blood pressure Provider Name and Address Organization Details Last Updated DateTime 04/18/2012 81346.59 446 g 25.89 kg/m2 166.4208 cm 98 mm[Hg] 60 mm[Hg] Not Available [facility] 0 10:56:43 Date Recorded Body mass index (BMI) Body height Body weight Systolic blood pressure Diastolic blood pressure Provider Name and Address Organization Details Last Updated DateTime 08/09/2014 22.51 kg/m2 166.4208 cm 59262.51 9791 g 90 mm[Hg] 54 mm[Hg] Not Available [facility] 0 10:56:42 Date Recorded Body height Body mass index (BMI) Body weight Systolic blood pressure Diastolic blood pressure Provider Name and Address Organization Details Last Updated DateTime 09/30/2019 166.4208 cm 25.13 kg/m2 99527.99 7711 g 90 mm[Hg] 56 mm[Hg] Not Available [facility] 0 10:56:42 Date Recorded Body mass index (BMI) Body height Body weight Systolic blood pressure Diastolic blood pressure Provider Name and Address Organization Details Last Updated DateTime 03/24/2010 25.4 kg/m2 166.4208 cm 37532.81 735 g 100 mm[Hg] 64 mm[Hg] Not Available [facility] 0 10:56:42 Date Recorded Body mass index (BMI) Body height Body weight Systolic blood pressure Diastolic blood pressure Provider Name and Address Organization Details Last Updated DateTime 10/03/2017 24.42 kg/m2 166.4208 cm 81925.26 313 g 98 mm[Hg] 52 mm[Hg] Not Available [facility] 0 10:56:42 Date Recorded Body mass index (BMI) Body height Body weight Systolic blood pressure Diastolic blood pressure Provider Name and Address Organization Details Last Updated DateTime 10/05/2010 26.75 kg/m2 166.4208 cm 33386.95 4403 g 106 mm[Hg] 58 mm[Hg] Not Available [facility] 0 10:56:42 Date Recorded Body height Body mass index (BMI) Body weight Systolic blood pressure Diastolic blood pressure Provider Name and Address Organization Details Last Updated DateTime 10/09/2010 166.4208 cm 26.59 kg/m2 27612.36 2033 g 108 mm[Hg] 62 mm[Hg] Not Available [facility] 0 10:56:43 Date Recorded Body weight Body mass index (BMI) Body height Systolic blood pressure Diastolic blood pressure Provider Name and Address Organization Details Last Updated DateTime 10/27/2020 93609.22 g 25.6 kg/m2 165.1 cm 102 mm[Hg] 60 mm[Hg] Jesi Leal [facility] 0 09:37:40 Social History Question Answer Notes LastModified by Organizat ion Details LastModified Time Tobacco Smoking Status Never Smoker Tobacco *Status: Never *Note: 10/01/2017 - Not Available [facility] 06/06/2020 13:23:55 What Is Your Level Of Alcohol Consumption? Occasional Alcohol *Status: Current Some Day *Qty: 1dr/week *Note: Information not available 06/06/2020 What Is Your Level Of Caffeine Consumption? Moderate Caffeine *Status: Current Every Day *Qty: 1c/day *Note: [email or web address] Information not available 11/16/2022 History Of Domestic Violence No Denies All Domestic Violence Information not available 06/06/2020 Marital Status [email or web address] Information not available 11/16/2022 Sex: Female Functional Status Question Answer Note LastModified by Organizat ion Details LastModified Time What is your exercise [...] and Address Organization Details Recorded Time Novel [id number], all formulations 10/27/2009 completed Ritika Beckman (TERMED) null, [place] [facility] 11/16/2022 09:35:22 COVID-19, mRNA, LNP-S, PF, 30 mcg/0.3 mL dose 02/25/2021 completed Ritika Beckman (TERMED) [place], [place] [facility] 11/16/2022 09:35:22 COVID-19, mRNA, LNP-S, PF, 30 mcg/0.3 mL dose 03/21/2021 completed Ritika Beckman (TERMED) null, [place] [facility] 11/16/2022 09:35:22 Td (adult), 5 Lf tetanus toxoid, preservative free, adsorbed 01/05/2022 completed Ritika Beckman (TERMED) null, [place] [facility] 11/16/2022 09:35:22 Past Encounters Encounter ID Performer Location Encounter Start Date Encounter Closed Date Diagnosis/Indication Diagnosis SNOMED-CT Code [id number] HECTOR CEDEÑO CNM [id number] [place] ,[address] [place] [id number] 10/27/2020 09:31:13 10/27/2020 10:30:46 Gynecologic examination 22759424 Perimenopausal state 161 [id number] MD ERI CARRILLO004_SOU [place] [address] [id number] 11/21/2021 10:31:51 11/21/2021 16:00:03 Gynecologic examination 94757411 Perimenopausal state 161 [id number] Headache 16353599 [id number] HECTOR CEDEÑO CNM [id number] [place] [address] [id number] 07/27/2022 13:49:03 08/08/2022 10:54:49 Mixed anxiety and depressive disorder 229330550 [facility] ion care management [id number] HECTOR CEDEÑO CNM [id number] [place]_[address] ,[address] [place] [id number] 11/16/2022 09:30:00 11/19/2022 12:15:56 Diabetes mellitus screening 170025654 Hyperlipid emia screening 860306632 Thyroid di sorder screening 297967525 Anxiety 19007260 Gynecologi c examination 87479543 [id number] MD ERI CARRILLO004_SOU [place] ,[address] [place] [id number] 11/26/2022 09:48:15 11/27/2022 09:27:58 Cramping pain 127206862 [id number] HECTOR CEDEÑO, ARMANDO [id number] [address] [facility] [address] ,[address] [place] [id number] 11/26/2022 10:14:53 11/26/2022 10:58:07 Intramural leiomyoma of uterus 07067407 [id number] HECTOR CEDEÑO, ARMANDO [id number] [facility] [address] [facility] ,[address] [place] [id number] 02/06/2024 10:05:19 02/06/2024 13:52:15 Hyperlipidemia screening 475842060 Diabetes m ellitus screening 765301585 Family his tory of Thyroid disorder 703755845 Gynecologi c examination 25489466 Menopausal symptom 99937 002 Anxiety 35723690 Health Concerns Section Related Observation LastModified by Organization Detai ls LastModified Time None Recorded Concern Status LastModified by Organization Details LastModified Time None Recorded Advance Directives Directive None Recorded Payers Encounter Date Sequence Insurance Name Policy Number Policy Cardona Covered Member ID Cardona Member ID Guarantor Name 02/06/2024 [place] [id number] Chaz Martinez [id number] Lanie Martinez 11/26/2022 1 [place] [id number] Chaz Martinez [id number] Lanie Martinez 11/26/2022 1 [place] [id number] Chaz Martinez [id number] Lanie Martinez 11/16/2022 1 [place] [id number] Chaz Martinez [id number] Lanie Martinez 07/27/2022 1 [place] [id number] Chaz Martinez [id number] Lanie Martinez 11/21/2021 1 [place] [id number] Chaz Martinez [id number] Lanie Riley Michelle 10/27/2020 1 [place] [id number] Chaz Martinez [id number] Lanie Martinez Notes Date Note Type Note Provider Name and Address Organization Details Recorded Time 10/27/2020 text/html HPI Notes: Brendon oscar Premenopausal ([facility]) Reported by patient. Patient Relationship To Practice: established patient Current Medical History: no active medical problems Relevant Family History: family history of breast cancer; no family history of ovarian cancer; no family history of uterine cancer; no family history of colon cancer; no family history of blood clots/DVT Menstrual History: Frequency of Menses: monthly; Duration of Flow: 5 days; Number of Days of Heavy Flow: 5; Clots: no Contraceptive Method: Current Method Used: vasectomy; satisfied Sexually Active: Yes: spouse STI Screen: declines Health/Prevention: Exercise: yes; Multivitamins: yes; Vitamin D: yes; Adequate Calcium Intake: yes; Breast Self Exam: yes; Seat Belt Use: yes; Tobacco Use: no; Safe at home: yes; Urinary Incontinence: no; Mental Health Screen: normal; Breast/Ovarian CA Screen: yes Mammogram: up-to-date Pap Smear +/- HPV Cotesting: up-to-date Thyroid/Lipid Screening: due; Fasting, will draw screening labs today Colonoscopy: not applicable Notes: Has left breast biopsy scheduled for 11/02/2020. Suspicion for malignancy is low per breast ultrasound report. Reports an increase in perimenopausal symptoms, hot flashes and night sweats, also increasing irritability the week prior to menses. Feels that these symptoms are interfering with her daily life and would like to discuss options. 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 Patient Relationship To Practice: established patient Current Medical History: no active medical problems Relevant Family History: family history of breast cancer; no family history of ovarian cancer; no family history of uterine cancer; no family history of colon cancer; no family history of blood clots/DVT Menstrual History: Frequency of Menses: monthly; Duration of Flow: 5 days; Number of Days of Heavy Flow: 5; Clots: no Contraceptive Method: satisfied: Sexually Active: Yes: spouse STI Screen: declines Health/Prevention: Exercise: yes; Multivitamins: yes; Vitamin D: yes; Adequate Calcium Intake: yes; Breast Self Exam: yes; Seat Belt Use: yes; Tobacco Use: no; Safe at home: yes; Urinary Incontinence: no; Mental Health Screen: normal; Breast/Ovarian CA Screen: yes Mammogram: up-to-date Pap Smear +/- HPV Cotesting: up-to-date Thyroid/Lipid Screening: due; Fasting, will draw screening labs today Colonoscopy: not applicable Notes: Has left breast biopsy scheduled for 11/02/2020. Suspicion for malignancy is low per breast ultrasound report. Reports an increase in perimenopausal symptoms, hot flashes and night sweats, also increasing irritability the week prior to menses. Feels that these symptoms are interfering with her daily life and would like to discuss options. Has annual skin scan scheduled [place] vat house [place] [address] [facility],[address], [place], [address], [place] [facility] 11/23/2021 16:01:23 07/27/2022 text/html HPI Notes: Contraception Surveillance ([facility]) Reported by patient. Reason for visit: contraception surveillance Current Contraception oral contraceptive pills * Context: heavy menses yes; menopausal symptoms no Satisfaction doing well; no complaints * Associated Signs and Symptoms weight gain; no nausea; no bloating; no vaginal discharge; no abnormal bleeding; no vaginal dryness; no headaches; no breast tenderness; no leg pain; no swelling in the extremeties Special Considerations: personal history of breast cancer no; history of DVT/PE no; history of blood clotting disorders no; history of migraines with aura no; hypertension no; cardiac disease no; smoker no Notes: Overall doing well, anxiety is stable on zoloft 50mg daily. Trying to establish care with a therapist. Has gained 7lbs since May, is wondering if it is because of the zoloft or the control pills. Diet and exercise discussed. Other BCM discussed as well. HECTOR CEDEÑO CNM [id number] [facility],[address], [place], [address], [facility] 08/04/2022 11:58:35 11/16/2022 text/html HPI Notes: Brendon oscar Premenopausal ([facility]) Reported by patient. Patient Relationship To Practice: established patient Current Medical History: no active medical problems Relevant Family History: family history of breast cancer; no family history of ovarian cancer; no family history of uterine cancer; no family history of colon cancer; no family history of blood clots/DVT Menstrual History: Frequency of Menses: irregular; spacing out c/w perimenopause Contraceptive Method: satisfied: vasectomy Sexually Active: Yes: spouse STI Screen: declines Health/Prevention: Exercise: yes; Multivitamins: yes; Vitamin D: yes; Adequate Calcium Intake: yes; Safe at home: yes; Urinary Incontinence: no Mammogram: due Pap Smear +/- HPV Cotesting: up-to-date Thyroid/Lipid Screening: due Colonoscopy: due 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 Has concerns about weight gain over the past few months. Started sertraline in July for depression/anxiety, concurrently started OCP's for painful, irregular periods. Continues to exercise daily and reports a healthy diet. Wonders if these meds are contributing to weight gain. Other concern: has had cramping and pelvic pain intermittently even though she hasn't had a period since June. Plan pelvic US Desires screening labs today HECTOR CEDEÑO CNM [address], [place], [address], [facility] 11/19/2022 10:41:37 11/26/2022 text/html HPI Notes: Luis mason presents after a a [employer] ultrasound. Her ultrasound today reveals uterine fibroid She states the pain is about the same. LMP was: 06/2022 Discussed overall normal rn med surg ultrasound. Uterine fibroid measures 1.2 x 1.0 x 0.8cm, described as intramural, slightly subserosal Continues to have cramping and bloating but feels it is more r/t colon. Will f/u with AMA CEDEÑO CNM [address], [place], [address], [facility] 11/26/2022 10:54:22 02/06/2024 text/html HPI Notes: Brendon oscar Premenopausal () Reported by patient. 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 Periods are monthly but vary in length. We discussed risks and benefits of supplemental hormonal therapy, pt is interested. HECTOR CEDEÑO, JIMBO [address] [facility],[address], [place], [address], [facility] 02/06/2024 13:51:28 OBGyn Episode Ob Episode Information Episode Created Date Number of Fetuses Patient Bloodtype Patient rh Status Prepregnancy Weight lbs Domestic Partner Domestic Partner Phone Father Name Hospitality Host Status 10/27/20 20 1 CLOSED Fetus Data First Name Last Name Admitted to NICU Weight (g) Sex Living Outcome Pediatric Complications Fetus ID Race Codes Race Delivery Type 4620.74 1704 M Full Term [id number] Gregory Calculation Initial Gregory Date Initial Exam Date Initial Exam Provider Initial Ultrasound Date Last Menstrual Period Date Ultra Sound Weeks Gestation 0 Eighteen To Twenty Week Gregory Update Ultra Sound Date Fundal Height At Umbil Quickening Date Ultra Sound Latest Weeks Gestation Final Gregory Confirmed By Final Gregory Confirmed Date Final Gregory Date Ultra Sound Latest Days Gestation 0 0 Menstrual History Last Menstrual Date Menses Monthly On Bcp Conception Prior Menses Frequency Hcg Plus Date Menarche Onset Age Delivery Information Delivery Date Delivery Type Labor Anesthesia Weeks Gestation Incision Type Labor Labor Length Hrs Delivered By Post Complications Tubal Sterilization Discharge Date Comments [address] Dr Sloane gibbs Discharge Information Feeding Method Contraceptive Method Maternal HG B and HCT Levels Ob Episode Information Episode Created Date Number of Fetuses Patient Bloodtype Patient rh Status Prepregnancy Weight lbs Domestic Partner Domestic Partner Phone Father Name Hospitality Host Status 10/27/20 20 1 CLOSED Fetus Data First Name Last Name Admitted to NICU Weight (g) Sex Living Outcome Pediatric Complications Fetus ID Race Codes Race Delivery Type 4706.01 7 F Full Term [id number] Gregory Calculation Initial Gregory Date Initial Exam Date Initial Exam Provider Initial Ultrasound Date Last Menstrual Period Date Ultra Sound Weeks Gestation 0 Eighteen To Twenty Week Gregory Update Ultra Sound Date Fundal Height At Umbil Quickening Date Ultra Sound Latest Weeks Gestation Final Gregory Confirmed By Final Gregory Confirmed Date Final Gregory Date Ultra Sound Latest Days Gestation 0 0 Menstrual History Last Menstrual Date Menses Monthly On Bcp Conception Prior Menses Frequency Hcg Plus Date Menarche Onset Age Delivery Information Delivery Date Delivery Type Labor Anesthesia Weeks Gestation Incision Type Labor Labor Length Hrs Delivered By Post Complications Tubal Sterilization Discharge Date Comments 6 [address] Dr Ted francois Discharge Information Feeding Method Contraceptive Method Maternal HG B and HCT Levels
[2024-04-10] MEDS: KETOROLAC 15 MG/ML inj IVP (15:26)
[2024-04-10] MEDS: 0.9 % SODIUM CHLORIDE 1000 ml 1,000 ML IV (15:26)
[2024-04-10 15:46] LABS: HCG Qualitative Serum* Negative (Negative)
[2024-04-10 16:31] VITALS: BP 107/61; RESP 16; O2SAT 98
== END 2024-04-10 16:43 | disposition home or self-care (01) ==
PROVIDERS: Emergency Provider Emergency Medicine
DX: N39.0 Urinary tract infection, site not specified (principal); R10.9 Unspecified abdominal pain
CPT/HCPCS: 36415; 74177; 84703; 87086; 87186; 96374; 96375; 99284; 99285; J1885; J7030; Q9967